=== PATIENT | female | born 1945 | race American Indian/Alaskan Native ===

== ENCOUNTER 2020-11-16 15:47 | Emergency (ER) | payer MEDICARE ==
[2020-11-16 15:53] VITALS: BP 135/57; PULSE 81
--- NOTE | 2020-11-16 17:05 | EDM.PDOC ---
ED HPI GENERAL MEDICAL PROBLEM - General Chief Complaint: General Time Seen by Provider: 11/16/20 16:40 Source of Information: Reports: Patient History Limitations: Reports: No Limitations - History of Present Illness INITIAL COMMENTS - FREE TEXT/NARRATIVE: This 74 yo female patient was brought to the ED by [facility] due to not feeling well. The patient reports she has not been taking her medications for the past 2 days (Metformin). The patient reports she does have nausea and a headache. Onset: Today Duration: Other Location: Reports: Head, Abdomen Quality: Reports: Other Severity: Mild Improves with: Reports: None Worsens with: Reports: None Context: Reports: Other Associated Symptoms: Reports: Nausea/Vomiting - Related Data Allergies Allergy/AdvReac Type Severity Reaction Status Date / Time No Known Allergies Allergy Verified 11/16/20 15:51 Home Meds: Home Meds DULoxetine HCl [Cymbalta] 60 mg PO DAILY 01/12/14 [History] LORazepam [Ativan] 1 mg PO BID PRN 01/12/14 [History] Simvastatin 10 mg PO DAILY 01/12/14 [History] Zolpidem [Ambien] 5 mg PO BEDTIME PRN 01/12/14 [History] glipiZIDE [Glipizide] 5 mg PO DAILY 01/12/14 [History] Ibuprofen [Motrin] 400 mg PO ASDIRECTED PRN 06/13/15 [History] Gabapentin [Neurontin] 800 mg PO TID 05/25/16 [History] Lisinopril 10 mg PO DAILY 05/25/16 [History] Phenytoin [Dilantin] 30 mg PO DAILY 05/25/16 [History] Past Medical History HEENT History: Reports: Impaired Vision Cardiovascular History: Reports: High Cholesterol, Hypertension [employer] History: Reports: Neurological History: Reports: Seizure Psychiatric History: Reports: Depression Endocrine/Metabolic History: Reports: Diabetes, Type II Hematologic History: Reports: None - Infectious Disease History Infectious Disease History: Reports: None Social & Family History - Family History Family Medical History: Unobtainable - Caffeine Use Caffeine Use: Reports: Coffee - Recreational Drug Use Recreational Drug Use: No ED ROS GENERAL - Review of Systems Review Of Systems: Comprehensive ROS is negative, except as noted in HPI. ED EXAM, GENERAL - Physical Exam Exam: See Below Exam Limited By: No Limitations General Appearance: Alert, WD/WN, Mild Distress, Thin Eye Exam: Bilateral Eye: EOMI, Normal Inspection, PERRL Ears: Normal External Exam, Normal Canal, Hearing Grossly Normal, Normal TMs Nose: Normal Inspection, Normal Mucosa, No Blood Throat/Mouth: Normal Inspection, Normal Lips, Normal Teeth, Normal Gums, Normal Oropharynx, Normal Voice, No Airway Compromise Head: Atraumatic, Normocephalic Neck: Normal Inspection, Supple, Non-Tender, Full Range of Motion Respiratory/Chest: No Respiratory Distress, Lungs Clear, Normal Breath Sounds, No Accessory Muscle Use, Chest Non-Tender Cardiovascular: Normal Peripheral Pulses, Regular Rate, Rhythm, No Edema, No Gallop, No JVD, No Murmur, No Rub GI/Abdominal: Normal Bowel Sounds (Female) Exam: Deferred Rectal (Female) Exam: Deferred Back Exam: Normal Inspection, Full Range of Motion, NT Extremities: Normal Inspection, Normal Range of Motion, Non-Tender, Normal Capillary Refill, No Pedal Edema Neurological: Alert, Oriented, CN II-XII Intact, Normal Cognition, Normal Gait, Normal Reflexes, No Motor/Sensory Deficits Psychiatric: Normal Affect, Normal Mood Skin Exam: Warm, Dry, Intact, Normal Color, No Rash Lymphatic: No Adenopathy Course - Vital Signs Last Recorded V/S: Last Vital Signs Temp 37.2 C 11/16/20 15:52 Pulse 81 11/16/20 15:52 Resp 18 11/16/20 15:52 BP 135/57 L 11/16/20 15:52 Pulse Ox 98 11/16/20 15:52 - Orders/Labs/Meds Orders: Active Orders 24 hr Category Date Time Status CBC WITH AUTO DIFF [HEME] Stat Lab 11/16/20 16:55 Ordered COMPREHENSIVE METABOLIC PN,CMP [CHEM] Stat Lab 11/16/20 16:55 Ordered CORONAVIRUS COVID-19 RON [[facility]] Urgent Lab 11/16/20 16:57 Ordered ETHANOL BLOOD MEDICAL [CHEM] Stat Lab 11/16/20 16:55 Ordered Departure - Departure Time of Disposition: 17:15 Disposition: Against Medical Advice 07 Condition: Undetermined Clinical Impression: Left against medical advice - Discharge Information *PRESCRIPTION DRUG MONITORING PROGRAM REVIEWED*: Not Applicable *COPY OF PRESCRIPTION DRUG MONITORING REPORT IN PATIENT DAJA: Not Applicable Forms: ED Department Discharge Care Plan Goals: The patient left prior to receiving lab results against medical advice. Patient was encouraged to stay by provider and nursing staff. Sepsis Event Note (ED) - Evaluation Sepsis Screening Result: No Definite Risk - Focused Exam Vital Signs: Vital Signs Temp Pulse Resp BP Pulse Ox 11/16/20 15:52 37.2 C 81 18 135/57 L 98 - My Orders Last 24 Hours: My Active Orders 11/16/20 16:55 CBC WITH AUTO DIFF [HEME] Stat COMPREHENSIVE METABOLIC PN,CMP [CHEM] Stat ETHANOL BLOOD MEDICAL [CHEM] Stat 11/16/20 16:57 CORONAVIRUS COVID-19 RON [[facility]] Urgent - Assessment/Plan Last 24 Hours: My Active Orders 11/16/20 16:55 CBC WITH AUTO DIFF [HEME] Stat COMPREHENSIVE METABOLIC PN,CMP [CHEM] Stat ETHANOL BLOOD MEDICAL [CHEM] Stat 11/16/20 16:57 CORONAVIRUS COVID-19 RON [[facility]] Urgent
== END 2020-11-16 17:13 | disposition left against medical advice (07) ==
LOC: DL.ED 15:47
DX: R11.2 Nausea with vomiting, unspecified (principal); R51.9 Headache, unspecified; I10 Essential (primary) hypertension; E78.00 Pure hypercholesterolemia, unspecified; E11.9 Type 2 diabetes mellitus without complications; F32.9 Major depressive disorder, single episode, unspecified; R56.9 Unspecified convulsions; Z53.20 Procedure and treatment not carried out because of patient's decision for unspecified reasons; Z79.84 Long term (current) use of oral hypoglycemic drugs; Z79.899 Other long term (current) drug therapy
CPT/HCPCS: 99284; U0002; 99282